=== PATIENT | female | born 1975 | race Caucasian/White ===

== ENCOUNTER 2020-06-11 09:32 | Emergency (ER) | payer MEDICAID ==
[~2020-06-11] VITALS: Ht 175.3 cm; Wt 68.0 kg
--- NOTE | 2020-06-11 09:55 | NUR ---
Dr Joshi at [facility] [place].
[2020-06-11] MEDS ORDERED: predniSONE 20 MG TABLET PO ONE (10:00)
[2020-06-11] MEDS ORDERED: ALBUTEROL SULFATE 8 GM HFA.AER.AD IH PRN (10:00)
[2020-06-11] MEDS ORDERED: IBUPROFEN 600 MG TABLET PO ONE (10:15)
[2020-06-11] MEDS ORDERED: IBUPROFEN 600 MG TABLET ONE (10:16)
[2020-06-11] MEDS ORDERED: predniSONE 20 MG TABLET ONE (10:34)
[2020-06-11 10:52] VITALS: BP 136/79
--- NOTE | 2020-06-11 10:53 | NUR ---
Patient discharged to home in stable condition. Written and verbal after care instructions given. Patient verbalizes understanding of instructions. Stressed follow up or return to ER for worsening s/s.
== END 2020-06-11 10:54 | disposition home or self-care (01) ==
LOC: ER 09:32
DX: J40 Bronchitis, not specified as acute or chronic (principal); Z20.828 Contact with and (suspected) exposure to other viral communicable diseases; R03.0 Elevated blood-pressure reading, without diagnosis of hypertension; F17.210 Nicotine dependence, cigarettes, uncomplicated
CPT/HCPCS: 71045; 99284; 99406; J7512; U0003; A4663; J3535

== ENCOUNTER 2023-11-28 00:02 | Emergency (ER) | payer MEDICAID ==
[~2023-11-28] VITALS: Ht 175.3 cm; Wt 87.1 kg
[2023-11-28] MEDS ORDERED: KETOROLAC TROMETHAMINE 30 MG INJ ONE (01:39)
[2023-11-28] MEDS: KETOROLAC TROMETHAMINE 30 MG INJ IM ONE (01:40)
[2023-11-28] MEDS ORDERED: NAPR-1009 PO (05:14)
[2023-11-28 05:27] LABS: *BLOOD, URINE NEGATIVE (NEGATIVE); *COLOR,URINE YELLOW (YELLOW); *KETONES,URINE TRACE (NEGATIVE); *PROTEIN,URINE NEGATIVE (NEGATIVE); *UROBILINOGEN,URINE 0.2 E.U./dl (NORMAL); LEUKOCYTE ESTERASE ,URINE TRACE (NEGATIVE); NITRITE, URINE NEGATIVE (NEGATIVE); PH,URINE 5.5 (5.0-8.0); UGLUCOSE NEGATIVE (NEGATIVE)
[2023-11-28 05:31] LABS: *BILIRUBIN,URIN 1+ (NEGATIVE); *CLARITY,URINE HAZY (CLEAR)
[2023-11-28 05:35] VITALS: BP 122/74; TEMP 98; O2SAT 98
[2023-11-28 05:36] LABS: *URINE HCG, QUAL NEGATIVE (NEGATIVE)
[2023-11-28 05:37] LABS: *AMPHETAMINE, URINE POSITIVE (NEGATIVE); *BARBITURATE, URINE NEGATIVE (NEGATIVE); *BENZODIAZEPINE, URINE NEGATIVE (NEGATIVE); *CANNABINOID, URINE NEGATIVE (NEGATIVE); *COCCAINE, URINE NEGATIVE (NEGATIVE); *OPIATE, URINE NEGATIVE (NEGATIVE); *PHENCYCLIDINE SCREEN,URINE NEGATIVE (NEGATIVE); FENTANYL, URINE POSITIVE (NEGATIVE)
[2023-11-28 06:05] LABS: BACTERIA,URINE MANY /HPF (NONE SEEN); RBC,URINE 0-3 /HPF (0-3); SQUAMOUS EPITHELIAL CELL,UR FEW /HPF (NONE SEEN); WBC,URINE 20-50 /HPF (0-3)
== END 2023-11-28 05:36 | disposition home or self-care (01) ==
LOC: ER 00:13
DX: M54.9 Dorsalgia, unspecified (principal); R10.2 Pelvic and perineal pain; F17.210 Nicotine dependence, cigarettes, uncomplicated; Z79.899 Other long term (current) drug therapy
CPT/HCPCS: 99285; 72131; 84703; 96372; 87086; 80307; 81001; J1885; A4606; A4663